=== PATIENT | female | born 1945 | race Caucasian/White ===

== ENCOUNTER 2018-05-15 11:05 | Inpatient (IN) ==
[2018-05-15] MEDS: *HR* HYDROcodone/Acet 10/325 mg TABLET PO ONE ×2 (11:15→11:26)
--- NOTE | 2018-05-15 11:24 | Emergency Department Note ---
Disposition Clinical Impression: Hip fracture Qualifiers: Encounter type: initial encounter Fracture type: closed Laterality: right Qualified Code(s): S72.001A - Fracture of unspecified part of neck of right femur, initial encounter for closed fracture Fall Qualifiers: Encounter type: initial encounter Qualified Code(s): W19.XXXA - Unspecified fall, initial encounter Disposition: Admitted As Inpatient Condition: Good Time of Disposition: 11:56 Fall HPI - General Chief Complaint: ED Fall Stated Complaint: Fall Time Seen by Provider: 05/15/18 11:06 Source: patient, EMS Mode of arrival: EMS Limitations: no limitations Nursing Notes Reviewed: Yes Vital Signs Reviewed: Yes - History of Present Illness HPI Narrative: Patient was tripped by her dog just prior to arrival. She arrives by EMS complaining of right proximal thigh pain. She denies other injury. She cannot recall whether she was able to bear weight since her fall. She takes no blood thinners other than aspirin Pt Subjective Complaint: fall Onset (ago): Just LICENSED GUIDE Fall From: standing Place Fall Occurred: home Loss of Consciousness: none Prolonged Down Time?: no Symptoms Prior to Fall: none Context: tripped/slipped Location of injury - extremities: Right: thigh Severity: severe Quality: aching Associated symptoms (after fall): Reports: denies - Related Data Allergies Allergy/AdvReac Type Severity Reaction Status Date / Time No Known Allergies Allergy Verified 05/15/18 11:24 All systems ED: reviewed and negative except as stated. Constitutional: Reports: as per HPI Eyes: Reports: as per HPI ENT ED: Reports: as per HPI Cardiovascular: Reports: as per HPI Respiratory: Reports: as per HPI Gastrointestinal: Reports: as per HPI Genitourinary: Reports: as per HPI Musculoskeletal: Reports: other (Right thigh pain) Integumentary: Reports: as per HPI Neurological: Reports: as per HPI Psychiatric: Reports: as per HPI Endocrine: Reports: as per HPI Hematological/Lymphatic: Reports: as per HPI Allergic/Immunologic: Reports: as per HPI Fall PMH - Past Medical History Medical history: Reports: non-contributory Psychiatric history: Reports: no psych history - Social History Smoking Status: Never smoker Alcohol use: Reports: none Drug use: Reports: none Physical Exam - General Limitations: no limitations General appearance: alert, in no apparent distress - Head Head exam: atraumatic - Eye Eye exam: Present: normal appearance - ENT ENT exam: normal exam - Neck Neck exam: Present: normal inspection, full ROM - Chest Chest inspection: Present: normal inspection, symmetric chest wall rise - Respiratory Respiratory exam: Present: normal lung sounds bilaterally - Cardiovascular Cardiovascular exam: Present: regular rate, normal rhythm, systolic murmur - Rectal Exam Rectal exam: Present: deferred - Expanded Lower Extremity Exam Hip/Pelvis exam: Present: normal inspection, other (No leg length discrepancy. Patient with decreased range of motion to flexion at the right hip). Absent: full ROM Upper leg exam: Present: normal inspection, tenderness Knee exam: Present: normal inspection Lower leg exam: Present: normal inspection Ankle exam: Present: normal inspection Foot/toe exam: Present: normal inspection - Neurological Exam Neurological exam: Present: alert, oriented X3, CN II-XII intact - Psychiatric Psychiatric exam: Present: normal affect, normal mood - Skin Skin exam: Present: warm, dry, intact Course Course Narrative: Patient presents after mechanical fall. Imaging study of the affected area ordered. - Reevaluation(s) Reevaluation #1: X-ray shows hip fracture. Call placed to orthopedics. I will order preoperative labs and consult orthopedics Vital Signs Temperature 97.5 F L 05/15/18 11:13 Pulse Rate 78 05/15/18 11:13 Respiratory Rate 18 05/15/18 11:13 Blood Pressure 146/84 05/15/18 11:13 O2 Sat by Pulse Oximetry 98 05/15/18 11:13 Temperature 97.5 F L 05/15/18 11:13 Pulse Rate 78 05/15/18 11:13 Respiratory Rate 18 05/15/18 11:13 Blood Pressure 146/84 05/15/18 11:13 O2 Sat by Pulse Oximetry 98 05/15/18 11:13 Oxygen Delivery Oxygen Delivery Room Air Fall - Lab Data Lab results reviewed: Yes I reviewed the patient's lab results. - Radiology Data Radiology results reviewed: Yes I reviewed the patient's radiology results. - EKG Data EKG attestation: Yes I reviewed and interpreted this EKG. EKG results narrative: Normal sinus rhythm rate 72 NE 138 QRS 123 QT/QTc 403/427. Left axis deviation. Left ventricular hypertrophy. No acute ST segment elevation
[2018-05-15 12:23] LABS: Basophils % 0.4 %; Eosinophils % 0.2 %; Hematocrit 36.3 % (35.3-44.9); Hemoglobin 12.6 g/dL (11.5-15.4); Immature Granulocytes % 0.7 % (0-4); Lymphocytes # 1.9 K/mcL (0.6-4.6); Lymphocytes % 18.4 %; Mean Corpuscular HGB Conc 34.7 g/dL (31.6-35.5); Mean Corpuscular Hemoglobin 30.7 pg (28.0-33.3); Mean Corpuscular Volume 88.5 fL (83.0-100.0); Mean Platelet Volume 10.4 fL (9.4-12.4); Monocytes # 0.6 K/mcL (0.0-1.3); Monocytes % 5.8 %; Neutrophils # 7.8 K/mcL (1.6-8.9); Platelet Count 227 K/mcL (140-400); Red Cell Distribution Width 11.9 % (11.5-14.5); Segmented Neutrophils % 74.5 %
[2018-05-15 12:29] LABS: INR 1.1; Prothrombin Time 12.5 Seconds (9.4-12.1)
[2018-05-15] MEDS ORDERED: *HR* FentaNYL (PF) 100 MCG/2 ML VIAL IVP ONE (12:42)
[2018-05-15] MEDS ORDERED: *HR* HYDROcodone/Acet 5/325 mg TABLET PO PRN (12:46)
[2018-05-15] MEDS ORDERED: Naloxone 0.4 MG/ML INJ IVP PRN (12:46)
[2018-05-15] MEDS ORDERED: Acetaminophen 325 MG TABLET PO PRN (12:46)
[2018-05-15 12:48] LABS: Alanine Aminotransferase 25 Units/L (7-52); Albumin 4.1 g/dL (3.5-5.7); Albumin/Globulin Ratio 1.6 (1.1-2.2); Alkaline Phosphatase 45 Units/L (34-104); Aspartate Amino Transferase 25 Units/L (13-39); BUN/Creatinine Ratio 25 (6-26); Bilirubin,Total 0.8 mg/dL (0.3-1.0); Blood Urea Nitrogen 18 mg/dL (8-23); Calcium 9.1 mg/dL (8.6-10.3); Carbon Dioxide 26 mEq/L (23-29); Chloride 108 mEq/L (98-107); Globulin 2.5 g/dL (2.4-3.5); Glucose 103 mg/dL (70-105); Osmolality,Calculated 294 (280-300); Potassium 3.6 mEq/L (3.5-5.1); Sodium 141 mEq/L (136-145); Total Protein 6.6 g/dL (6.4-8.9); eGFR For African Americans > 60 (> 60); eGFR For Non-African Americans > 60 (> 60)
--- NOTE | 2018-05-15 12:48 | Internal Med History&Physical ---
Date of Encounter: 05/15/18 Time of Encounter: 13:37 Internal Medicine - H&P: HPI Chief complaint: Mechanical fall Admitted From: Home Plans for Post Hospital Care: Home History of present illness: Ms. Betancur is a 72 year old female with medical history of dementia, and anxiety on benzodiazepines for was jumped by her dog and sustained a mechanical fall afterwards. She reports no preceding symptoms, no suspicious cardiac or respiratory symptoms. The patient is on medications for dementia, but he said to be mostly independent and lives with her spouse at home. She denies chest pain, shortness of breath, nausea, vomiting, diarrhea, fever, chills, no change in bowel or urinary habits. Patient has never had surgery, she has never smoked , she denies any shortness of breath while doing her regular activities. She has no leg swelling. She denies any illicit drug use. Other review of system is noncontributory. Workup in the ER including complete blood count, chemistry, liver function tests , coag panel unremarkable. Imaging of the right lower extremity shows intertrochanteric femoral fracture. The patient will be admitted inpatient for pain control, and ORIF. Orthopedics has been consulted by the emergency room team. Past Med Surg Social Fam HX - Past Medical History Medical history: dementia Psychiatric history: anxiety - Social History Smoking Status: Never smoker Smokeless Tobacco Status: No Alcohol use: none Drug use: none Internal Medicine - H&P: Meds Aspirin Enteric Coated [Aspirin EC] 81 mg PO DAILY 05/15/18 [History] Donepezil [Aricept] 10 mg PO HS 05/15/18 [History] Ezetimibe [Ezetimibe] 10 mg PO DAILY 05/15/18 [History] LORazepam [Ativan] 1 mg PO TID PRN 05/15/18 [History] Memantine HCl 10 mg PO BID 05/15/18 [History] Simvastatin [Zocor] 40 mg PO HS 05/15/18 [History] 3 Allergy/AdvReac Type Severity Reaction Status Date / Time No Known Allergies Allergy Verified 05/15/18 11:24 All Systems PM: A 10-system review of systems was performed and is negative for pertinent findings except as documented above in the HPI. - Constitutional Constitutional: as per HPI - EENT Eyes: as per HPI Ears: as per HPI Nose, mouth and throat: as per HPI - Cardiovascular Cardiovascular ROS IM: as per HPI - Respiratory Respiratory: as per HPI - Gastrointestinal Gastrointestinal: as per HPI - Genitourinary Genitourinary: as per HPI - Musculoskeletal Musculoskeletal ROS IM: as per HPI - Integumentary Integumentary IM: as per HPI - Neurological Neurological ROS: as per HPI - Hematologic/Lymphatic Hematologic/Lymphatic: as per HPI - Constitutional Vitals: Temp Pulse Resp BP Pulse Ox 97.5 F L 78 18 146/84 98 05/15/18 11:13 05/15/18 11:13 05/15/18 11:13 05/15/18 11:13 05/15/18 11:13 General appearance: Present: A&O X 2 (Oriented to place and person only) - Head Head exam: Present: atraumatic, normocephalic - Eye Eye exam: Present: PERRL, conjuntiva pink, sclera anicteric Pupils: Present: PERRL - Neck Neck exam general surgery: Present: supple, trachea midline. Absent: lymphadenopathy - Respiratory Respiratory exam: Present: CTAB. Absent: accessory muscle use, rales, rhonchi, wheezes - Cardiovascular Cardiovascular exam: Present: RRR, +S1, +S2. Absent: diastolic murmur, gallop, rubs, systolic murmur - GI/Abdominal GI/Abdominal exam: Present: normal bowel sounds, soft, no peritoneal signs. Absent: distended, tenderness - Extremities Exam Extremities exam: Present: warm, radial pulses palpable and symmetrical. Absent : calf tenderness, cyanotic, pedal edema Additional comments: RLE shorter and abducted - Neurological Exam Neurological exam: Present: alert, CN II-XII intact, no focal deficits. Absent : oriented X3, pronater drift, facial droop, speech deficit - Skin Skin exam: Present: dry, intact Internal Med - H&P Results - Labs CBC & Chem 7: 05/15/18 12:11 05/15/18 12:11 - Assessment and plan (1) Femoral fracture Current Visit: Yes Status: Acute Assessment and plan: Secondary to mechanical fall Ortho consulted NPO from [place] for possible surgery Labs unremarkable Low risk for cardio-pulmonary complications post-op Pain control DVT prophylaxis Fall precautions Qualifiers: Encounter type: initial encounter Femur location: intertrochanteric Fracture type: closed Fracture alignment: nondisplaced Laterality: right Qualified Code(s): S72.144A - Nondisplaced intertrochanteric fracture of right femur, initial encounter for closed fracture (2) Dementia Current Visit: Yes Status: Chronic Assessment and plan: continue home meds high risk for delirium in-patient especially post-op Qualifiers: Dementia type: unspecified type Dementia behavioral disturbance: without behavioral disturbance Qualified Code(s): F03.90 - Unspecified dementia without behavioral disturbance (3) Fall Current Visit: Yes Status: Acute Assessment and plan: mechanical fall, fall precautions Qualifiers: Encounter type: initial encounter Qualified Code(s): W19.XXXA - Unspecified fall, initial encounter (4) Anxiety Current Visit: Yes Status: Chronic Assessment and plan: resume home ativan prn - Time Spent With Patient Total time spent is greater than 50% in coordination of care (as documented) at patient's floor/unit and/or counseling patient:
[2018-05-15] MEDS: *HR* LORazepam 1 MG TABLET PO PRN ×2 (15:32→23:10)
[2018-05-15] MEDS: *HR* OxyCODONE Immed Rel 5 MG TABLET PO PRN (17:30)
--- NOTE | 2018-05-15 17:44 | Orthopedic Consult Note ---
Date of Encounter: 05/15/18 Time of Encounter: 17:42 Assessment and Plan (1) Hip fracture Current Visit: Yes Status: Acute I did discuss the diagnosis in detail with the patient. She is a right intratrochanteric hip fracture. I did discuss treatment options and my recommendation was for reduction and stabilization with medullary nailing to reduce and stabilize the right hip for pain control and to help facilitate nursing care.The risks discussed included but were not limited to stiffness, bleeding, infection, blood clots, damage to neurovascular structures, tendons, ligaments, and bone. Also discussed was the risk of continued symptoms and possible need for further procedures. I did discuss the anesthesia risks including stroke, heart attack, and . I did discuss the reasonable, foreseeable postoperative course with the patient. She did wish to proceed. We will obtain formal informed consent. Qualifiers: Encounter type: initial encounter Fracture type: closed Qualified Code(s) : S72.001A - Fracture of unspecified part of neck of right femur, initial encounter for closed fracture History of Present Illness HPI: Ms. Betancur is a 72 year old female. She is currently admitted to the hospitalist after a fall earlier today. This resulted in an intertrochanteric right hip fracture. I was consulted to assist in the evaluation and management of the patient. She complains of isolated pain to the right hip and groin. She denies any headaches, neck pain, chest pain, abdominal pain, bilateral upper extremity pain, and left lower extremity pain. Pain is worse with movement and better with rest. It is described as sharp and achy. No numbness , tingling, or any other associated signs or symptoms or modifying factors. Past Med Surg Social Fam HX - Past Medical History Medical history: dementia Additional medical history: fracture left wrist, fracture right hip Psychiatric history: anxiety - Past Surgical History Surgical History: no surgical history - Social History Smoking Status: Never smoker Smokeless Tobacco Status: No Alcohol use: none Drug use: none Medications and Allergies Aspirin Enteric Coated [Aspirin EC] 81 mg PO DAILY 05/15/18 [History] Donepezil [Aricept] 10 mg PO HS 05/15/18 [History] Ezetimibe [Ezetimibe] 10 mg PO DAILY 05/15/18 [History] LORazepam [Ativan] 1 mg PO TID PRN 05/15/18 [History] Memantine HCl 10 mg PO BID 05/15/18 [History] Simvastatin [Zocor] 40 mg PO HS 05/15/18 [History] 3 Allergy/AdvReac Type Severity Reaction Status Date / Time No Known Allergies Allergy Verified 05/15/18 11:24 All Systems Reviewed: Constitutional and musculoskeletal systems were reviewed and are negative unless otherwise stated in history of present illness. Physical Exam - Constitutional Vitals: Temp Pulse Resp BP Pulse Ox 97.9 F 74 16 91/57 97 05/15/18 14:59 05/15/18 14:59 05/15/18 14:59 05/15/18 14:59 05/15/18 14:59 Constitutional -Vitals reviewed -The patient is well developed and well nourished. -Mood is pleasant. -The patient is well groomed. Psychiatric -The patient is fully alert and oriented x 3. Respiratory: -Respiratory effort normal Abdomen: -Soft abdomen -Non tender -Non distended: Left upper extremity: -No deformities. The overlying skin is intact. No obvious signs of acute trauma. -No tenderness to palpation throughout. -No significant pain with passive motion of the shoulder, elbow, wrist, and fingers within the limits of the bed. -Able to make an "OK" sign, cross the index and long fingers, and extend the thumb. -Sensation grossly intact to light touch throughout the median, radial, and ulnar distributions. -Radial pulse is present; Fingers have good capillary refill. Right upper extremity: -No deformities. The overlying skin is intact. No obvious signs of acute trauma. -No tenderness to palpation throughout. -No significant pain with passive motion of the shoulder, elbow, wrist, and fingers within the limits of the bed. -Able to make an "OK" sign, cross the index and long fingers, and extend the thumb. -Sensation grossly intact to light touch throughout the median, radial, and ulnar distributions. -Radial pulse is present; Fingers have good capillary refill. Left lower extremity: -No deformities. The overlying skin is intact. No obvious signs of acute trauma. -No tenderness to palpation throughout. -No pain with passive motion of the hip, knee, ankle, and toes within the limits of the bed. -No pain with axial loading of the thigh. -Able to dorsiflex and plantarflex the ankle and toes. -Sensation is grossly intact to light touch throughout the sural, saphenous, superficial peroneal, and deep peroneal distributions. -Toes have good capillary refill. Right lower extremity: -The extremity is shortened and externally rotated. The overlying skin is intact. -There is tenderness in the groin region as well as the proximal lateral thigh. -I did not range the hip due to the known fracture. -No tenderness along the distal thigh, leg, ankle, foot, or toes. -Able to dorsiflex and plantarflex the ankle and toes. -Sensation is grossly intact to light touch throughout the sural, saphenous, superficial peroneal, and deep peroneal distributions. -Toes have good capillary refill. Diagnostic Imaging: I did personally review and interpret x-rays of the pelvis, right femur, and CT scan of the right hip which show a comminuted intertrochanteric hip fracture on the right. Results - Labs Result Diagrams: 05/15/18 12:11 05/15/18 12:11 Labs: Abnormal lab results PT 12.5 Seconds (9.4-12.1) H 05/15/18 12:11 Chloride 108 mEq/L (98-107) H 05/15/18 12:11 All other labs normal. Consult Discharge Plan - Plan Referrals: Chaz Diaz DO [Primary Care Provider] -
--- NOTE | 2018-05-16 01:06 | Anesthesia Evaluation PreOp ---
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 (dementia, anxiety (treated with benzos)) Other Medical History: Denies Any Significant HX Anesthesia History: Past Anesthesia (never had surgery previously) Alcohol Use: none Drug use: none Medications and Allergies Aspirin Enteric Coated [Aspirin EC] 81 mg PO DAILY 05/15/18 [History] Donepezil [Aricept] 10 mg PO HS 05/15/18 [History] Ezetimibe [Ezetimibe] 10 mg PO DAILY 05/15/18 [History] LORazepam [Ativan] 1 mg PO TID PRN 05/15/18 [History] Memantine HCl 10 mg PO BID 05/15/18 [History] Simvastatin [Zocor] 40 mg PO HS 05/15/18 [History] 3 Allergy/AdvReac Type Severity Reaction Status Date / Time No Known Allergies Allergy Verified 05/15/18 11:24 - Meds/Allergy Pre-op Review Medications Reviewed: Yes Allergies Reviewed: Yes Beta Blockers on Current Med List: No Anesthesia Results - Labs 05/15/18 12:11 05/15/18 12:11 - Imaging EKG: report reviewed (ormal sinus rhythm rate 72 NH 138 QRS 123 QT/QTc 403/427. Left axis deviation. Left ventricular hypertrophy. 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: Other Other Medical History: Denies Any Significant HX Anesthesia History: Past Anesthesia : No Alcohol Use: none Drug use: none - Meds/Allergy Pre-op Review Medications Reviewed: Yes Allergies Reviewed: Yes Beta Blockers on Current Med List: No Anesthesia Results - Labs 05/16/18 06:37 07/10/18 12:11 - Imaging EKG: report reviewed Anesthesia Exam Height: 5'4 Weight: 50 kg 110 lbs NPO (# of Hours): MN Pain Scale: 2 - HEENT Pupil (Motor): Pupils equal, EOMI Mallampati: III Teeth: Normal Oral Opening: Less than or equal to 3 - SIZING MACHINE OPERATOR LOC: Oriented SIZING MACHINE OPERATOR Motor: Normal RUE, Normal LUE, Normal RLE, Normal LLE, Normal Face SIZING MACHINE OPERATOR Sensory: Normal: RUE, LUE, RLE, LLE, Face - Cardiac Rhythm: Regular Murmur: None JVD: No Carotid Bruit: No - Pulmonary Breath Sounds: bilateral Clear Respiratory Effort: Symmetrical Anesthesia Assess/Plan ASA Score: 3 Modified Everson Scale for Level of Consciousness: Cooperative, oriented, and tranquil Anesthetic Plan: General Monitoring Plan: Standard Monitors Recovery Plan: PACU (Discussed GA, agrees to proceed)
[2018-05-16] MEDS ORDERED: *HR* Enoxaparin 40 MG/0.4 ML SYRINGE SQ SCH (06:00)
[2018-05-16 07:12] LABS: Basophils % 0.1 %; Eosinophils % 0.1 %; Hematocrit 32.6 % (35.3-44.9); Hemoglobin 11.3 g/dL (11.5-15.4); Immature Granulocytes % 0.4 % (0-4); Lymphocytes # 1.6 K/mcL (0.6-4.6); Lymphocytes % 12.4 %; Mean Corpuscular HGB Conc 34.7 g/dL (31.6-35.5); Mean Corpuscular Hemoglobin 30.6 pg (28.0-33.3); Mean Corpuscular Volume 88.3 fL (83.0-100.0); Mean Platelet Volume 10.8 fL (9.4-12.4); Monocytes # 1.1 K/mcL (0.0-1.3); Monocytes % 8.5 %; Neutrophils # 10.3 K/mcL (1.6-8.9); Platelet Count 201 K/mcL (140-400); Red Blood Count 3.69 M/mcL (3.82-4.97); Red Cell Distribution Width 11.8 % (11.5-14.5); Segmented Neutrophils % 78.5 %
[2018-05-16] MEDS ORDERED: Aspirin Enteric Coated 81 MG Tablet PO SCH (09:00)
[2018-05-16] MEDS: *HR* OxyCODONE Immed Rel 5 MG TABLET PO PRN (09:01)
[2018-05-16] MEDS ORDERED: CeFAZolin Syr 2,000MG/20 ML 2,000 MG/20 ML SYRINGE IVPB ONE (14:24)
[2018-05-16] MEDS ORDERED: Acetaminophen IV 1,000 MG/100 ML INFUS..BTL ONE (14:33)
[2018-05-16] MEDS ORDERED: Ondansetron 4 MG/2 ML VIAL ONE (14:44)
[2018-05-16] MEDS ORDERED: Dexamethasone 4 MG/ML VIAL ONE (14:44)
[2018-05-16] MEDS ORDERED: *HR* Propofol 200 MG/20 ML VIAL IVP ONE (14:44)
[2018-05-16] MEDS ORDERED: Lidocaine -MPF 2% 2 ML VIAL ONE (14:44)
[2018-05-16] MEDS ORDERED: *HR* FentaNYL (PF) 100 MCG/2 ML VIAL ONE (14:57)
[2018-05-16] MEDS ORDERED: Ringers Solution, Lactated 1,000 ML IV SCH ×2 (15:30→18:53)
[2018-05-16] MEDS ORDERED: *HR* Morphine 2 MG/ML SYRINGE IVP PRN ×2 (17:32→18:53)
[2018-05-16] MEDS ORDERED: Ondansetron 4 MG/2 ML VIAL IVP ONE ×2 (17:32→18:53)
[2018-05-16] MEDS ORDERED: *HR* OxyCODONE Immed Rel 5 MG TABLET PO PRN ×3 (17:32→18:53)
--- NOTE | 2018-05-16 18:20 | Anesthesia Evaluation Post Op ---
Date of Encounter: 05/16/18 Time of Encounter: 18:20 - Vital Signs Vital Signs: Vital Signs/O2 Sat/Glucose, Most Current Temp Pulse Resp BP Pulse Ox 05/16/18 18:09 79 16 148/66 98 05/16/18 17:59 82 16 141/72 97 05/16/18 17:49 98.1 F 78 18 138/75 98 05/16/18 15:47 80 16 132/67 96 05/16/18 15:37 81 15 130/68 96 05/16/18 15:15 87 15 130/74 97 05/16/18 14:57 93 15 141/75 97 - Lungs Lungs: Clear Ascult./Percussion - Airway Airway: Non-obstructed - Cardiovascular Regular Rate - Mental Status Mental Status: Alert & Oriented, Answers Appropriately - Pain Pain Scale: 0 - Nausea Vomiting Nausea Vomiting: Not Present - Hydration Hydration: Ice chips - Discharge PostOp Status: Transfer Patient to floor
--- NOTE | 2018-05-16 18:40 | Internal Med Progress Note ---
Date of Encounter: 05/16/18 Time of Encounter: 18:40 - Assessment and plan (1) Femoral fracture Current Visit: Yes Status: Acute Assessment and plan: Secondary to mechanical fall. Ortho taking to surgery today. Continue pain control. Qualifiers: Encounter type: initial encounter Femur location: intertrochanteric Fracture type: closed Fracture alignment: nondisplaced Laterality: right Qualified Code(s): S72.144A - Nondisplaced intertrochanteric fracture of right femur, initial encounter for closed fracture (2) Fall Current Visit: Yes Status: Acute Assessment and plan: mechanical fall, fall precautions. Will check urine analysis Qualifiers: Encounter type: initial encounter Qualified Code(s): W19.XXXA - Unspecified fall, initial encounter (3) Dementia Current Visit: Yes Status: Chronic Assessment and plan: continue home meds high risk for delirium in-patient especially post-op Qualifiers: Dementia type: unspecified type Dementia behavioral disturbance: without behavioral disturbance Qualified Code(s): F03.90 - Unspecified dementia without behavioral disturbance (4) Anxiety Current Visit: Yes Status: Chronic Assessment and plan: resume home ativan prn - Time Spent With Patient Total time spent is greater than 50% in coordination of care (as documented) at patient's floor/unit and/or counseling patient: less than 15 minutes - Subjective Interval history: Pt's at bed side. SHe does report hip pain. Denies fever, chills, N/V or diarrhea. Denies CP or SOB. - Constitutional Vitals: Temp Pulse Resp BP Pulse Ox 97.6 F 84 18 154/76 82 05/16/18 18:19 05/16/18 18:29 05/16/18 18:29 05/16/18 18:29 05/16/18 18:29 General appearance: Present: A&O X 2 (Oriented to place and person only) - Head Head exam: Present: atraumatic, normocephalic - Eye Eye exam: Present: PERRL, conjuntiva pink, sclera anicteric Pupils: Present: PERRL - Neck Neck exam general surgery: Present: supple, trachea midline. Absent: lymphadenopathy - Respiratory Respiratory exam: Present: CTAB. Absent: accessory muscle use, rales, rhonchi, wheezes - Cardiovascular Cardiovascular exam: Present: RRR, +S1, +S2. Absent: diastolic murmur, gallop, rubs, systolic murmur - GI/Abdominal GI/Abdominal exam: Present: normal bowel sounds, soft, no peritoneal signs. Absent: distended, tenderness - Extremities Exam Extremities exam: Present: warm, radial pulses palpable and symmetrical. Absent : calf tenderness, cyanotic, pedal edema - Neurological Exam Neurological exam: Present: CN II-XII intact, oriented X3, no focal deficits. Absent: pronater drift, facial droop, speech deficit - Skin Skin exam: Present: dry, intact Internal Medicine: Result - Labs CBC & Chem 7: 05/16/18 06:37 05/15/18 12:11 Labs: Short CBC 05/16/18 Range/Units 06:37 WBC 13.1 H (4.3-11.1) K/mcL Hgb 11.3 L (11.5-15.4) g/dL Hct 32.6 L (35.3-44.9) % Plt Count 201 (140-400) K/mcL Neutrophils # 10.3 H (1.6-8.9) K/mcL - ABG Interpretation ABG results: PT/INR, D-dimer PT 12.5 Seconds (9.4-12.1) H 05/15/18 12:11 - Impressions Impressions Femur X-Ray 05/16/18 16:25 IMPRESSION: Intraprocedural fluoroscopic spot images as above. See separate procedure report for more information. D/ / Shreyas Webb MD / Shreyas Webb MD Interpreting Provider: Shreyas Webb MD Fluoroscopy 05/16/18 16:25 IMPRESSION: Intraprocedural fluoroscopic spot images as above. See separate procedure report for more information. D/ / Shreyas Webb MD / Shreyas Webb MD Interpreting Provider: Shreyas Webb MD Consult Discharge Plan - Plan Referrals: Chaz Diaz DO [Primary Care Provider] -
[2018-05-16] MEDS ORDERED: Acetaminophen 325 MG TABLET PO PRN (18:53)
[2018-05-16] MEDS ORDERED: Naloxone 0.4 MG/ML INJ IVP PRN (18:53)
[2018-05-16] MEDS ORDERED: *HR* HYDROcodone/Acet 5/325 mg TABLET PO PRN (18:53)
--- NOTE | 2018-05-16 20:10 | Orthopedic Operative Note ---
Date of procedure: 05/16/18 Procedure: OPERATIVE REPORT DATE OF PROCEDURE: 05/16/2018 SURGEON: Victor Hugo Morton MD MARKETING PERFORMANCE ANALYST(S): There were no assistants PREOPERATIVE DIAGNOSIS: Right intertrochanteric hip fracture POSTOPERATIVE DIAGNOSIS: Same PROCEDURE: Reduction and medullary nailing of the right intertrochanteric hip fracture ANESTHESIA: Gen. anesthesia PREOPERATIVE ANTIBIOTICS: To grams of Ancef ESTIMATED BLOOD LOSS: 50 milliliters IMPLANTS: Stryer Gamma 3; 380 by 11m by 125 with 85 mm lag screw ad two distal lockers PREOPERATIVE NOTE AND INDICATIONS: This patient is a 72-year-old female who sustained a right hip fracture. It was found to be a comminuted intratrochanteric hip fracture. My recommendation was for reduction and fixation of the right hip to stabilize the hip and to provide pain control and to help facilitate nursing care. The surgical plan was discussed with the the patient. The risks, benefits, alternatives, and potential complications of this procedure were discussed with the patient including injury to veins, arteries, nerves, tendons, ligaments, and bone. Also discussed were the risks of infection, bleeding, pain, blood clots, the possible need for a blood transfusion, the possible need for further procedures, heart attack, stroke, and . Additional risks include malunion , nonunion, hardware failure, and the need for prosthetic replacement. All of this was explained in simple terms, and the patient verbalized understanding and wished to proceed. Consent was given to proceed with surgery. PROCEDURE: The patient was seen in the preoperative holding area where the identify and the consent were confirmed. The right hip was marked. Final questions were answered. The patient was brought back to the operating room. A huddle was performed with the patient and all vital surgical team members confirming patient identity, the correct procedure, and the correct operative site. Gen. anesthesia was administered. The patient was placed on the traction table and the right hip was placed on traction and internal rotation and the left lower extremity was extended out of the way. The right thigh was prepped and draped in the usual sterile fashion. A surgical time out was performed immediately preceding the incision with all personnel in the operating room to confirm patient identity, the correct operative site and extremity, correct radiographic studies, availability of appropriate surgical equipment, and agreement on the planned procedure. The C-arm was brought in and a longitudinal incision was made just proximal to the greater trochanter. Dissection proceeded carefully through the subcutaneous tissue and gluteal fascia. The guidewire was placed on the tip of the greater trochanter and driven into the proximal femur. This was opened with an awl. The guidewire was placed into the femur and it was sequentially reamed up to 13 mm. The definitive nail was placed into the bone and the triple sleeve was used to make a second incision through the subcutaneous tissue and fascia and the K wire was driven into the head of the femur. This was overdrilled and the definitive 85 mm lag screw was placed. Perfect [place] technique was used to place 2 distal lockers. The wounds were copiously irrigated and the fascia was closed with 0 Vicryl stitches. The skin was closed with 3-0 Vicryl followed by reggie. Sterile dressings were applied. Before skin closure x-rays had showed good reduction. The patient was taken off the traction table and placed on a regular bed having tolerated the procedure well. The instrument, sponge, and needle counts were correct after wound closure. POST OPERATIVE PLAN: Weight Bearing: Touchdown weightbearing to the right lower extremity DVT Prophylaxis: Aspirin Activity: Avoid aggressive activities. Wound Care: Keep the incisions clean, dry, and intact. Pain Control: Per the primary team Perioperative antibiotic prophylaxis: 2 doses of Ancef Social work for discharge planning Follow Up: 2 weeks in the office for staple removal and x-rays of the right hip. Was there an tax accounting assistant present: No Estimated blood loss (cc): 50
[2018-05-16] MEDS: *HR* LORazepam 1 MG TABLET PO PRN (22:59)
[2018-05-17 01:53] LABS: Hematocrit 25.4 % (35.3-44.9); Hemoglobin 8.9 g/dL (11.5-15.4)
[2018-05-17 02:11] LABS: BUN/Creatinine Ratio 25 (6-26); Blood Urea Nitrogen 17 mg/dL (8-23); Calcium 8.2 mg/dL (8.6-10.3); Carbon Dioxide 26 mEq/L (23-29); Chloride 104 mEq/L (98-107); Glucose 184 mg/dL (70-105); Osmolality,Calculated 288 (280-300); Potassium 4.1 mEq/L (3.5-5.1); Sodium 136 mEq/L (136-145); eGFR For African Americans > 60 (> 60); eGFR For Non-African Americans > 60 (> 60)
[2018-05-17 04:16] LABS: Bilirubin,Urine Negative (Negative); Blood,Urine Negative (Negative); Clarity,Urine Clear (Clear); Color,Urine Yellow (Yellow); Glucose,Urine (UA) 100 mg/dL (Normal); Ketones,Urine Negative (Negative); Leukocyte Esterase,Urine Negative (Negative); Nitrite,Urine Negative (Negative); PH,Urine 5.5 pH Units (5.0-8.0); Protein,Urine Trace mg/dL (Neg-Trace); Specific Gravity,Urine > 1.030 (1.010-1.025); Urobilinogen,Urine Normal (Normal)
[2018-05-17 04:19] LABS: Bacteria,Urine None Seen per hpf (None-Few); Hyaline Casts,Urine Few per lpf (None-Few); Squamous Epithelial Cell,Urine Many per lpf (None-Few); WBC,Urine 0-3 per hpf (0-3)
--- NOTE | 2018-05-17 06:40 | Electrocardiograph Report ---
[address] [place], [place] [address] Test Date: 2018-05-15 Pat Name: Iris Betancur Department: 102 Room: [facility] Gender: F Umbrella Tipper Machine: : 1945 Requested By: Nicolas Merida Order Number: [id number] Reading MD: Sung Page Measurements Intervals [place] Rate: 72 P: 53 UT: 138 QRS: -46 QRSD: 123 T: 96 QT: 403 QTc: 427 Interpretive Statements SINUS RHYTHM MARKED LEFT AXIS DEVIATION MODERATE INTRAVENTRICULAR CONDUCTION DELAY VOLTAGE CRITERIA FOR LVH Poor R wave progression BASELINE ARTIFACT Electronically Signed On 05-17-2018 6:39:27 EDT by Sung Page
--- NOTE | 2018-05-17 09:45 | Orthopedics Progress Note ---
Date of Encounter: 05/17/18 Time of Encounter: 09:44 - Assessment and Plan (1) Hip fracture Current Visit: Yes Status: Acute Qualifiers: Encounter type: initial encounter Fracture type: closed Qualified Code(s) : S72.001A - Fracture of unspecified part of neck of right femur, initial encounter for closed fracture Subjective Interval history: S: The patient is sitting up in a chair is very comfortable. Pain is very well-controlled. O: Afebrile on the vital signs are stable Right hip dressing is clean, dry, and intact Neurovascularly intact distally A: Post internal fixation of the right hip, doing well P: Weight bearing as tolerated on the bilateral lower extremities. Therapy when able DC [place] today Aspirin 325 mg by mouth twice a day for DVT prophylaxis. Dressing change tomorrow Objective Vital signs: Vital Signs Temp Pulse Resp BP Pulse Ox 05/17/18 06:43 98.7 F 95 17 162/91 95 05/17/18 03:36 98.7 F 89 16 115/66 92 05/17/18 00:06 98.2 F 85 14 125/65 92 05/16/18 21:50 97.7 F 88 16 138/74 95 05/16/18 20:50 97.7 F 84 16 131/68 95 05/16/18 20:05 95 05/16/18 19:50 97.7 F 84 17 133/78 100 05/16/18 19:20 97.6 F 81 17 136/77 100 05/16/18 18:29 84 18 154/76 82 05/16/18 18:19 97.6 F 80 16 157/72 98 05/16/18 18:09 79 16 148/66 98 05/16/18 17:59 82 16 141/72 97 05/16/18 17:49 98.1 F 78 18 138/75 98 05/16/18 15:47 80 16 132/67 96 05/16/18 15:37 81 15 130/68 96 05/16/18 15:15 87 15 130/74 97 05/16/18 14:57 93 15 141/75 97 Intake and Output 05/16/18 05/17/18 05/17/18 23:59 07:59 15:59 Intake Total 120 / 120 Output Total 50 / 50 200 / 200 Balance 70 / 70 -200 / -200 Intake: IV Fluids 120 / 120 Ancef Syringe 2,000 MG/20 ML 2, 20 / 20 000 mg In 20 ml @ 200 mls/hr IVPB ONCE ONE Rx#:[id number] Ancef 2,000 MG In 0.9 % Sodium 100 / 100 Chloride 100 ML @ 200 mls/hr IVPB Q8HR [facility] Rx#:[id number] Output: Estimated Blood Loss 50 / 50 Catheter 200 / 200 - Labs CBC & BMP: 05/17/18 01:14 05/17/18 01:14 Labs: Abnormal lab results WBC 13.1 K/mcL (4.3-11.1) H 05/16/18 06:37 RBC 3.69 M/mcL (3.82-4.97) L 05/16/18 06:37 Hgb 8.9 g/dL (11.5-15.4) L D 05/17/18 01:14 Hct 25.4 % (35.3-44.9) L 05/17/18 01:14 Neutrophils # 10.3 K/mcL (1.6-8.9) H 05/16/18 06:37 PT 12.5 Seconds (9.4-12.1) H 05/15/18 12:11 Glucose 184 mg/dL (70-105) H 05/17/18 01:14 POC Glucose 128 mg/dL (70-99) H 05/16/18 11:46 Calcium 8.2 mg/dL (8.6-10.3) L 05/17/18 01:14 Ur Specific [place] > 1.030 (1.010-1.025) H 05/17/18 03:56 Urine Glucose (UA) 100 mg/dL (Normal) H 05/17/18 03:56 Urine Microscopic RBC 5-15 per hpf (0-3) H 05/17/18 03:56 Ur Squamous Epith Cells Many per lpf (None-Few) H 05/17/18 03:56 - VTE Documentation of Mechanical Device: Intermittent pneumatic compression device Consult Discharge Plan - Plan Referrals: Chaz Diaz DO [Primary Care Provider] -
--- NOTE | 2018-05-17 17:36 | Internal Med Progress Note ---
Date of Encounter: 05/17/18 Time of Encounter: 11:45 - Assessment and plan (1) Femoral fracture Current Visit: Yes Status: Acute Assessment and plan: Status post mechanical fall. Right hip CT shows acute displaced inratrochanteric right femoral fracture. Orthopedic surgery consulted, patient underwent Reduction and medullary nailing of the right intertrochanteric hip fracture on 05/16/18. Local wound care per orthopedic surgery. Pain control with when necessary Tylenol. DVT prophylaxis with high-dose aspirin. Physical therapy evaluation recommends ECF placement. outpatient services director on board. Noted to have a drop in hemoglobin, 8.9 today. Transfuse when necessary to keep hemoglobin above 8. Qualifiers: Encounter type: initial encounter Femur location: intertrochanteric Fracture type: closed Fracture alignment: displaced Laterality: right Qualified Code(s): S72.141A - Displaced intertrochanteric fracture of right femur, initial encounter for closed fracture (2) Fall Current Visit: Yes Status: Acute Qualifiers: Encounter type: initial encounter Qualified Code(s): W19.XXXA - Unspecified fall, initial encounter (3) Dementia Current Visit: Yes Status: Chronic Qualifiers: Dementia type: Alzheimer's disease Alzheimer's disease onset: late-onset Dementia behavioral disturbance: without behavioral disturbance Qualified Code (s): G30.1 - Alzheimer's disease with late onset; F02.80 - Dementia in other diseases classified elsewhere without behavioral disturbance (4) Anxiety Current Visit: Yes Status: Chronic - Time Spent With Patient Total time spent is greater than 50% in coordination of care (as documented) at patient's floor/unit and/or counseling patient: - Subjective Interval history: Right hip pain well controlled. Patient has poor memory, history obtained from her daughter at bedside. Tolerates oral diet. Denies chest pain, shortness of breath, fever, chills. Awaiting rehabilitation placement. - Constitutional Vitals: Temp Pulse Resp BP Pulse Ox 98.4 F 95 18 126/68 93 05/17/18 15:47 05/17/18 15:47 05/17/18 15:47 05/17/18 15:47 05/17/18 15:47 General appearance: Present: A&O X 2 (Oriented to place and person only), answers questions appropriately - Respiratory Respiratory exam: Present: CTAB. Absent: accessory muscle use, rales, rhonchi, wheezes - Cardiovascular Cardiovascular exam: Present: RRR, +S1, +S2. Absent: diastolic murmur, gallop, rubs, systolic murmur - Extremities Exam Extremities exam: Present: warm, radial pulses palpable and symmetrical. Absent : calf tenderness, cyanotic, pedal edema Additional comments: right lateral hip with surgical reggie intact; no bleeding; Internal Medicine: Result - Labs CBC & Chem 7: 05/17/18 01:14 05/17/18 01:14 Labs: Short CBC 05/17/18 Range/Units 01:14 Hgb 8.9 L D (11.5-15.4) g/dL Hct 25.4 L (35.3-44.9) % BMP 05/17/18 01:14 Sodium 136 Potassium 4.1 Chloride 104 Carbon Dioxide 26 BUN 17 Creatinine 0.67 Glucose 184 H Calcium 8.2 L Urine 05/17/18 Range/Units 03:56 Urine Color Yellow (Yellow) Urine Clarity Clear (Clear) Urine pH 5.5 (5.0-8.0) pH Units Ur Specific [place] > 1.030 H (1.010-1.025) Urine Protein Trace (Neg-Trace) mg/dL Urine Glucose (UA) 100 H (Normal) mg/dL - ABG Interpretation ABG results: PT/INR, D-dimer PT 12.5 Seconds (9.4-12.1) H 05/15/18 12:11 - Impressions Impressions Femur X-Ray 05/16/18 16:25 IMPRESSION: Intraprocedural fluoroscopic spot images as above. See separate procedure report for more information. D/ / Shreyas Webb MD / Shreyas Webb MD Interpreting Provider: Shreyas Webb MD Fluoroscopy 05/16/18 16:25 IMPRESSION: Intraprocedural fluoroscopic spot images as above. See separate procedure report for more information. D/ / Shreyas Webb MD / Shreyas Webb MD Interpreting Provider: Shreyas Webb MD - VTE Documentation of Mechanical Device: Intermittent pneumatic compression device Consult Discharge Plan - Plan Referrals: Chaz Diaz DO [Primary Care Provider] -
[2018-05-17] MEDS: Aspirin Enteric Coated 325 MG Tablet PO SCH ×2 (17:54→20:10)
[2018-05-18] MEDS: *HR* LORazepam 1 MG TABLET PO PRN ×2 (01:00→09:22)
[2018-05-18 01:12] LABS: Basophils % 0.2 %; Eosinophils % 0.1 %; Hematocrit 21.9 % (35.3-44.9); Hemoglobin 7.6 g/dL (11.5-15.4); Immature Granulocytes % 0.3 % (0-4); Lymphocytes # 1.8 K/mcL (0.6-4.6); Lymphocytes % 15.2 %; Mean Corpuscular HGB Conc 34.7 g/dL (31.6-35.5); Mean Corpuscular Hemoglobin 31.3 pg (28.0-33.3); Mean Corpuscular Volume 90.1 fL (83.0-100.0); Mean Platelet Volume 11.2 fL (9.4-12.4); Monocytes # 1.5 K/mcL (0.0-1.3); Monocytes % 12.5 %; Neutrophils # 8.3 K/mcL (1.6-8.9); Nucleated Red Blood Cells 0.2 /100 WBC (0); Platelet Count 139 K/mcL (140-400); Red Blood Count 2.43 M/mcL (3.82-4.97); Red Cell Distribution Width 11.9 % (11.5-14.5); Segmented Neutrophils % 71.7 %
--- NOTE | 2018-05-18 07:10 | Orthopedics Progress Note ---
Date of Encounter: 05/18/18 Time of Encounter: 07:08 - Assessment and Plan (1) Hip fracture Current Visit: Yes Status: Acute Qualifiers: Encounter type: initial encounter Fracture type: closed Qualified Code(s) : S72.001A - Fracture of unspecified part of neck of right femur, initial encounter for closed fracture Subjective Interval history: S: Pain is very well-controlled. O: Afebrile on the vital signs are stable Right hip dressing is clean, dry, and intact Neurovascularly intact distally A: Post internal fixation of the right hip, doing well P: Weight bearing as tolerated on the bilateral lower extremities. Therapy when able Aspirin 325 mg by mouth twice a day for DVT prophylaxis. Objective Vital signs: Vital Signs Temp Pulse Resp BP Pulse Ox 05/17/18 23:28 99.3 F 90 16 128/71 93 05/17/18 18:50 99.0 F 97 16 137/63 94 05/17/18 15:47 98.4 F 95 18 126/68 93 05/17/18 11:52 98.6 F 89 17 120/68 92 Intake and Output 05/17/18 05/17/18 05/18/18 15:59 23:59 07:59 Intake Total 240 / 240 Output Total 400 / 400 Balance -160 / -160 Intake: Oral 240 / 240 Output: Urine 400 / 400 Other: Meal Lunch Dinner Percent of Meal Consumed 25% 80% # Voids 1 - Labs CBC & BMP: 05/18/18 00:59 05/17/18 01:14 Labs: Abnormal lab results WBC 11.6 K/mcL (4.3-11.1) H 05/18/18 00:59 RBC 2.43 M/mcL (3.82-4.97) L 05/18/18 00:59 Hgb 7.6 g/dL (11.5-15.4) L 05/18/18 00:59 Hct 21.9 % (35.3-44.9) L 05/18/18 00:59 Plt Count 139 K/mcL (140-400) L 05/18/18 00:59 Monocytes # 1.5 K/mcL (0.0-1.3) H 05/18/18 00:59 Nucleated RBCs/100 WBC 0.2 /100 WBC (0) H 05/18/18 00:59 PT 12.5 Seconds (9.4-12.1) H 05/15/18 12:11 Glucose 184 mg/dL (70-105) H 05/17/18 01:14 POC Glucose 128 mg/dL (70-99) H 05/16/18 11:46 Calcium 8.2 mg/dL (8.6-10.3) L 05/17/18 01:14 Ur Specific [place] > 1.030 (1.010-1.025) H 05/17/18 03:56 Urine Glucose (UA) 100 mg/dL (Normal) H 05/17/18 03:56 Urine Microscopic RBC 5-15 per hpf (0-3) H 05/17/18 03:56 Ur Squamous Epith Cells Many per lpf (None-Few) H 05/17/18 03:56 - VTE Documentation of Mechanical Device: Venous foot pump, device Consult Discharge Plan - Plan Referrals: Chaz Diaz DO [Primary Care Provider] -
[2018-05-18] MEDS: Aspirin Enteric Coated 325 MG Tablet PO SCH (09:22)
[2018-05-18] MEDS ORDERED: 0.9 % Sodium Chloride 250 ML ONE (11:07)
--- NOTE | 2018-05-18 13:58 | Discharge Summary ---
- NOTES TO OUTPATIENT PROVIDER Notes to Outpatient Provider: Right hip fracture s/p surgical repair, anemia s/ p 1unit PRBC transfusion; to monitor Hb closely; Date of Encounter: 05/18/18 Time of Encounter: 13:56 - Discharge Diagnosis (1) Femoral fracture Priority: Primary Status: Acute Qualifiers: Encounter type: initial encounter Femur location: intertrochanteric Fracture type: closed Fracture alignment: displaced Laterality: right Qualified Code(s): S72.141A - Displaced intertrochanteric fracture of right femur, initial encounter for closed fracture (2) Fall Priority: Primary Status: Deleted Qualifiers: Encounter type: initial encounter Qualified Code(s): W19.XXXA - Unspecified fall, initial encounter (3) Dementia Priority: Secondary Status: Chronic Qualifiers: Dementia type: Alzheimer's disease Alzheimer's disease onset: late-onset Dementia behavioral disturbance: without behavioral disturbance Qualified Code (s): G30.1 - Alzheimer's disease with late onset; F02.80 - Dementia in other diseases classified elsewhere without behavioral disturbance (4) Anxiety Priority: Secondary Status: Chronic Hospital course: Ms. Betancur is a 72 year old female who was admitted with right hip pain secondary to mechanical fall at home. CT right hip showed an acute displaced intertrochanteric right femoral fracture. Orthopedic surgery was consulted, patient underwent reduction and medullary nailing of the right hip fracture on 05/16/2018. Patient tolerated the procedure well, postoperative recovery was uneventful. Noted to have anemia with hemoglobin drop to 7.6, received 1 unit PRBC transfusion as ordered by orthopedics. She was continued on high-dose aspirin for DVT prophylaxis. Physical and operation therapy evaluation was completed, recommend ECF placement. Patient is currently medically stable for this transfer. Plan of care discussed with patient's family at bedside, who is agreeable with discharge. Discharge discussed with: patient, family, nurse, social work - Time Spent with Patient Total time spent providing and/or coordinating discharge services: Greater than 30 minutes (45 min) - Discharge Medications Prescriptions: Ferrous Sulfate 325 mg PO BIDWM #30 tablet HYDROcodone/Acet 5/325 mg [[place] 5-325 mg] 1 tab PO Q6H PRN 5 Days #10 tab PRN Reason: Severe Pain LORazepam [Ativan] 1 mg PO TID PRN 5 Days #10 tablet PRN Reason: Anxiety Home Medications: Donepezil [Aricept] 10 mg PO HS 05/15/18 [History] Ezetimibe 10 mg PO DAILY 05/15/18 [History] Memantine HCl 10 mg PO BID 05/15/18 [History] Simvastatin [Zocor] 40 mg PO HS 05/15/18 [History] Acetaminophen [Tylenol] 650 mg PO Q6HR PRN tablet 05/18/18 [Rx] Aspirin Enteric Coated [Aspirin EC] 325 mg PO BID tablet. 05/18/18 [Rx] Ferrous Sulfate 325 mg PO BIDWM #30 tablet 05/18/18 [Rx] HYDROcodone/Acet 5/325 mg [[place] 5-325 mg] 1 tab PO Q6H PRN 5 Days #10 tab 05/18 [Rx] LORazepam [Ativan] 1 mg PO TID PRN 5 Days #10 tablet 05/18/18 [Rx] Allergies/Adverse Reactions: 3 Allergy/AdvReac Type Severity Reaction Status Date / Time No Known Allergies Allergy Verified 05/15/18 11:24 Date of admission: 05/15/18 12:12 Primary care physician: Micha Diaz DO Consults: 05/16/18 18:53 Consult to Occupational Therapy [CONS] Routine Comment: Evaluate, develop and implement POC Reason for Consult: post hip surgery Does patient have active BEDREST order?: No Is patient medically & hemodynamically stable?: Yes Consult to Orthopedic Navigator [CONS] [CONS] Routine Consult to Physical Therapy [CONS] Routine Comment: Evaluate, develop and implement POC Reason for Consult: post hip surgery Does patient have active BEDREST order?: No Is patient medically & hemodynamically stable?: Yes Consult to Gin Operator [CONS] Routine Reason for SW Consult: post -op hip fracture RT Post Op Consult [CONS] Routine Discharging clinician: Klelee Watters Anticipated date of discharge: 05/18/18 - Constitutional Vitals: Temp Pulse Resp BP Pulse Ox 99.6 F 88 16 114/66 93 05/18/18 11:45 05/18/18 11:45 05/18/18 11:45 05/18/18 11:45 05/18/18 11:45 General appearance: Present: A&O X 2 (Oriented to place and person only), answers questions appropriately - Cardiovascular Cardiovascular exam: Present: RRR, +S1, +S2. Absent: diastolic murmur, gallop, rubs, systolic murmur - Patient Status Disposition: Transfer SNF Condition: Fair Functional capacity at discharge: uses cane/walker Overall status at discharge: patient is progressing back to baseline - Discharge Instructions Follow Up With: Chaz Diaz DO [Primary Care Provider] - 05/28/18 9:30 am () Victor Hugo Morton MD [Partnered Physician] - 05/24/18 1:30 pm Additional Instructions: Discharge Instructions: IM NAILING Please call [facility] ([phone]), your Primary Care Physician, or report to the Emergency Room if you have any of the following symptoms: Nausea, vomiting, fever greater that 101.5, swelling, chest pain, shortness of breath, increased pain/redness/drainage/odor for your incision site, numbness/ tingling, or any other concerning symptoms. ACTIVITY:Weight-bearing as tolerated for 8 weeks with hip dislocation precautions that physical therapy taught you. You may progress as tolerated under the guidance of your physical therapist. You do not need to sleep with a pillow between your legs. You can also seep on the operative side or on your stomach. MEDICATIONS: Upon discharge resume your home medications. Take all the medications as prescribed. Take a stool softener if taking narcotic pain medications. Stool softeners are only effective if you drink enough fluids. Drink 6-8 glass of water or fluids a day, unless this is not allowed for another health problem. Despite using stool softeners, if you haven't had a bowel movement in 3 days, please switch to a gentle laxative. Gentle laxatives are sold over the counter. You should have a bowel movement within 24 hours, if not call the office. You will be discharged from the hospital with a prescription for pain medication. You are encouraged to decrease the use of narcotic pain medication as tolerated. Should you require a refill, please call the office. [facility] prescribes narcotic pain medication for only 4-6 weeks after surgery. If you require pain medication beyond this time period, you may be referred to your Primary Care Physician or to the Pain Clinic for further evaluation. Plan ahead for refills on pain medication as many narcotics either need to be picked up at the office or mailed. It is best to call 48-72 hours in advance of needing a prescription refill so you don't run out of medication. To help control the post-operative pain, you may take NSAIDs (Aleve,Advil, Motrin, ibuprofen, naprosyn) or Tylenol as prescribed on the bottle in addition to the pain medication. ANTICOAGULATION (blood thinners): Continue your Aspirin, Lovenox or Coumadin as prescribed to help prevent a blood clot in the leg or in the lungs. As long as your incision remains dry and you tolerate the NSAIDs (Aleve, Advil, Motrin, Ibuprofen, Naprosyn), it is OK to use the NSAIDS while you are taking your anticoagulation medication. Should your incision start to drain, stop the NSAID and contact our office. Common symptoms of blood clot in the legs include: localized pain, swelling, calf tenderness, redness or discoloration of the skin. Blood clot in the lung symptoms include: shortness of breath, rapid pulse, sweating, and chest pain that worsens with deep breathing, coughing up blood, lightheadedness, feelings of anxiety. If you experience any of these symptoms notify your physician immediately, go to the emergency room, or if having trouble breathing, call 911. WOUND CARE: Q SHIFT DRESSING CHANGE If you do not have a visiting nurse or rehab facility, you will need to return to the office at 10-14 days for the reggie to be removed. If you have itching or redness around the dressing call the office. FOLLOW-UP: Please follow up with your surgeon in the orthopedic clinic in 6 weeks from the day of surgery. If you have reggie that need to be removed, you will need to come back to the office in 10-14 days from the day of surgery. F/up with PCP in 1-2 weeks F/up with Orthopedics in 1 week Wound care recommendations per Orthopedics; - Diet and Activity Activity: as per physical therapy Diet: advance to your usual diet, regular diet - VTE Documentation of Mechanical Device: Intermittent pneumatic compression device
--- NOTE | 2018-05-18 14:05 | Physician Discharge Referral ---
ExtendedCare Referral Info Transfer To: [facility] Provider in Charge: Kellee Watters Provider in Charge after Transfer: PCP Institutional Level of Care: Skilled - Diagnosis (1) Femoral fracture Priority: Primary Status: Acute (2) Fall Priority: Primary Status: Acute (3) Dementia Priority: Secondary Status: Chronic (4) Anxiety Priority: Secondary Status: Chronic Expected Duration of Placement: 3 weeks Prognosis: Fair Aware of Diagnosis: Family Aware of Prognosis: Family - Transfer Medications Prescriptions: Ferrous Sulfate 325 mg PO BIDWM #30 tablet HYDROcodone/Acet 5/325 mg [[place]anton 5-325 mg] 1 tab PO Q6H PRN 5 Days #10 tab PRN Reason: Severe Pain LORazepam [Ativan] 1 mg PO TID PRN 5 Days #10 tablet PRN Reason: Anxiety Home Medications: Donepezil [Aricept] 10 mg PO HS 05/15/18 [History] Ezetimibe 10 mg PO DAILY 05/15/18 [History] Memantine HCl 10 mg PO BID 05/15/18 [History] Simvastatin [Zocor] 40 mg PO HS 05/15/18 [History] Acetaminophen [Tylenol] 650 mg PO Q6HR PRN tablet 05/18/18 [Rx] Aspirin Enteric Coated [Aspirin EC] 325 mg PO BID tablet. 05/18/18 [Rx] Ferrous Sulfate 325 mg PO BIDWM #30 tablet 05/18/18 [Rx] HYDROcodone/Acet 5/325 mg [Canton 5-325 mg] 1 tab PO Q6H PRN 5 Days #10 tab 05/18 [Rx] LORazepam [Ativan] 1 mg PO TID PRN 5 Days #10 tablet 05/18/18 [Rx] Allergies/Adverse Reactions: 3 Allergy/AdvReac Type Severity Reaction Status Date / Time No Known Allergies Allergy Verified 05/15/18 11:24 - Respiratory Orders Smoking Cessation: Smoking cessation has been advised. For more information, call the [place] Tobacco Quit Line at 9-683-HDAYNOW. - Advance Directives Code Status: Full Code - Mobility Orders Ambulate - Rehabiliation Orders Rehab Potential: Fair Rehab Orders: Sternal Precautions, ROM Exercises, Evaluation for Physical Therapy, Evaluation for Occupational Therapy - Diet Orders Cardiac CERTIFICATION: I certify that the transfer of the above named patient to an Extended Care Facility is necessary for the continuing treatment of the diagnosis listed. The above information is true and accurate reflection of patient's current condition. Confidential - Redisclosure prohibited without a patient's written consent.
[2018-05-18 15:32] VITALS: BP 132/70
== END 2018-05-18 16:48 | DRG 482 ==
LOC: EMEROO 11:05 → 3ANU 12:12 → SUATTDRO 12:12 → 3ANU 14:02 → 3NENU 05-16 15:33
PROVIDERS: ADMIT Internal Medicine; ATTEND Internal Medicine